=== PATIENT | female | born 1980 | race Caucasian/White ===

== ENCOUNTER → 2020-10-14 14:41 | Outpatient (BNVA) | payer OTHER, SELFPAY | PROVIDERS: PCP Family Medicine; Visit Provider Podiatrist Foot & Ankle Surgery | DX: M79.671 Pain in right foot (principal) | CPT/HCPCS: 73630 ==

== ENCOUNTER 2020-10-29 15:38 | Outpatient (CLI) | payer OTHER, SELFPAY ==
--- NOTE | 2020-10-29 15:44 | MR_ITS ---
WS: [id number] MRI RIGHT FOOT without CONTRAST. COMPARISON: Radiograph 10/14/2020 Multiplanar, multisequence imaging is performed without contrast. There is a lobulated soft tissue mass of predominantly cystic but mildly heterogeneous signal centere d lateral to the anterior talar process. There is mild extension of this cystic mass towards the sinu s Tarsi. Mass measures 2.1 x 2.0 cm. Mass is in close contact with the inferior extensor retinaculum band. The cervical ligament appears intact. There is no marrow edema within the talus or calcaneus. T here is some very mild increased signal in the sinus Tarsi on the STIR sequence which probably indica cheri mild fibrosis and scarring. There is increased T2 signal in the proximal cuboid measuring 8.8 mm in diameter. There is mild narro wing of the calcaneocuboid articulation and a small amount of fluid in the joint space. Normal alignm ent at the tarsometatarsal articulation. Achilles tendon is normal. Flexion and extensor tendons are intact. Peroneal brevis and longus tendons are normal. MR/MR foot RT wo con* [id number] IMPRESSION: 1. Slightly lobulated with mildly heterogeneous cystic lesion lateral to the t alus extending into the sinus Tarsi. This cystic mass measures 2.1 x 2.0 cm and is very likely a ganglion. Closely associated with the inferior extensor retin aculum and. 2. Cervical ligament in the sinus Tarsi is intact but there is mild scar tissu e in the sinus Tarsi. 3. Mild narrowing and degenerative changes at the calcaneocuboid articulation.
== END 2020-10-29 15:39 | disposition home or self-care (01) ==
LOC: RADSHAW 15:40
PROVIDERS: PCP Family Medicine; Visit Provider Podiatrist Foot & Ankle Surgery
DX: M25.571 Pain in right ankle and joints of right foot (principal)
CPT/HCPCS: 73718

== ENCOUNTER → 2021-07-26 15:24 | Outpatient (BNVA) | payer OTHER, SELFPAY | PROVIDERS: PCP Family Medicine; Visit Provider Podiatrist Foot & Ankle Surgery | DX: Z01.812 Encounter for preprocedural laboratory examination (principal); Z20.822 Contact with and (suspected) exposure to COVID-19; M67.471 Ganglion, right ankle and foot | CPT/HCPCS: 87635 ==

== ENCOUNTER 2021-07-30 05:52 | Day surgery (SDC) | payer OTHER, SELFPAY ==
[2021-07-29 15:48] VITALS: BMI 26.5
[2021-07-30] VITALS (9 sets, daily range): BP systolic 129–163; BP diastolic 76–102; PULSE 69–108; RESP 16–23; TEMP 36.3–36.8; O2SAT 92–99
--- NOTE | 2021-07-30 | SCC_ITS ---
Procedure Done: Soft tissue mass removal with synovectomy right sinus tarsi and excision of bone cyst right foot. 50 seconds of fluoroscopic guidance, for a cumulative dose of 0.850 mGy, was provided to Dr. Toussaint by the radiology department. C-arm images of the right ankle were saved for the patient's permanent record. [facility]
--- NOTE | 2021-07-30 06:33 | P.ANESASSM_ITS ---
Pre-Anesthetic Assessment Pre-Anesthetic Assessment: Height/Weight: Height 1.78 m Weight 83.915 kg Temp Pulse Resp BP Pulse Ox 98.2 F 92 17 163/102 98 07/30/21 06:16 07/30/21 06:16 07/30/21 06:16 07/30/21 06:16 07/30/21 06:16 Preop Diagnosis: Soft tissue mass and bone lesion right foot Proposed Procedure: Operation Date: 07/30/21 07:00 Proposed Procedures p Synovectomy rigt sinus tarsi 46776 M67.471(Right) - Joshua Toussaint DPM s Excision Bone Cyst Right Foot 39582 M67.471(Right) - Joshua Toussaint DPM Familial anesthetic complications: None Was Beta Graciela taken within 24 hours: N/A Was Clonidine taken within 24 hours: N/A Last intake: Intake Last Liquid Date 07/29/21 Last Liquid Time 23:59 Last Solid Date 07/29/21 Last Solid Time 22:00 Social: Social History: No alcohol and No tobacco Exam: Pre-Anes Outpt Exam: alert, oriented x 3, clear to auscultation bilaterally and regular rate & rhythm Airway: Cervical ROM: WNL MP: 2 Dentition: Full Anesthetic Plan: ASA status: 1 Anesthesia: General and Regional (specify below) Risk of > 500 ml blood loss (7ml/kg in children): No PFSH Anesthesia PFSH: Medical History Bone spur of right foot Deficient knowledge of leg surgery Surgical History H/O foot surgery Social History Quit status (tobacco): has quit using tobacco Second hand smoke exposure: No Smoking risk assessment/counseling performed?: Yes Alcohol intake: current Alcohol intake frequency: few times a week Alcohol type: wine Desire information about alcohol rehabilitation?: No Counseling given: Yes Desire information about substance/drug rehabilitation?: No Counseling given: Yes Adopted: No Caregiver/support person: No Lives independently: Yes Household members: spouse and children Housing: House Marital status: Number of children: 3 Highest education level completed: Bachelor's Degree service: No Current occupational status: unemployed Pets and animals: Yes History of recent travel: No Leisure activites: art and reading Sexually active: Yes Current gender identity: Female Paulina/Scientologist: Zoroastrianism Special paulina needs: No Agree to transfusion: Yes Financial difficulty paying for basics: Not Very Hard Data Anesthesia Cardiac Studies: No Data to Display
--- NOTE | 2021-07-30 06:52 | ANES.PROC ---
Anesthesia Procedures Procedure/Date: 07/30/21 Nerve Block ^: Nerve Block 1: Main Anesthesia: general anesthesia Time Out Performed: Yes Consent: requested by attending/covering physician, from patient, from other, risks and benefits reviewed and patient agrees to proceed Nerve block location: popliteal (R) Anesthesia monitors applied: pulse oximetry, EKG, BP cuff and oxygen Nerve block position: supine Anesthetic Used: ropivicaine 0.5% and with decadron (4) Amount of anesthesia used (mL): 30 Ultrasound used to: recognize landmarks Nerve Stimulator Used?: No Interscalene/Femoral BLK: 4 stimuplex 21 g needle used for position and inplane approach, visualize local anesthetic spread and no vascular puncture identified Injection: neg aspiration of heme Patient Tolerated Procedure: well and no complications Complications: none
--- NOTE | 2021-07-30 06:56 | W.PM.OPSUD ---
Surgery/Procedure H&P Update DATE OF PROCEDURE: July 30, 2021 DATE H&P PERFORMED: 07/26/21 H&P UPDATE INFORMATION: I have reviewed H&P completed within last 30 days, I have examined patient prior to procedure, No changes to prior documentation and H&P is in [facility] [place] on date indicated PREOP DIAGNOSIS: Soft tissue mass and bone lesion right foot PLANNED PROCEDURE: Operation Date: 07/30/21 07:00 Proposed Procedures p Synovectomy rigt sinus tarsi 88220 M67.471(Right) - Joshua Toussaint DPM s Excision Bone Cyst Right Foot 39988 M67.471(Right) - Joshua Toussaint DPM
[2021-07-30] MEDS: sodium chloride 0.9% 1,000 ML 30 ML IV (07:01)
[2021-07-30 07:03] LABS: OR HCG Qualitative Urine Negative (Negative)
[2021-07-30] MEDS: triamcinolone 40 mg/mL SDV IM (07:51)
--- NOTE | 2021-07-30 08:21 | XR_ITS ---
WS: [id number] Right foot, 3 views, 07/30/2021 Clinical Data: post op Comparison: Right foot, 10/14/2020. Findings: No fractures or dislocations are seen. No bone destruction or erosion is noted. The joint spaces and soft tissues are normal. By history a soft tissue mass has been removed. XR/XR foot RT min 3V* [id number] Impression: Negative right foot.
--- NOTE | 2021-07-30 08:30 | P.OP_ITS ---
Operative Report Date of procedure: July 30, 2021 Pre-op Diagnosis: Soft tissue mass and bone lesion right foot Post-op diagnosis: same Procedure Done: Soft tissue mass removal with synovectomy right sinus tarsi and excision of bone cyst right foot. CPT codes 71228 and 68645 Implants: 205 crural, 4-0 Vicryl, 4-0 nylon, Ortho biologic from [employer] interosseous bone plasty to the cuboid 1 cc, 1:1:1 mixture 0.5% Marcaine plain 1 cc, dexamethasone 4 mg 1 cc and Kenalog 41 cc total of 3 cc in the sinus tarsi. Pathology: Soft tissue mass right sinus tarsi sent to pathology lipoma appearance Surgeon: Joshua Toussaint D.P.M. Radiology Receptionist: Robbie Anesthesia: General Estimated blood loss: Less than 5 mL Tourniquet time: See Intra-Op documentation IV fluids: None Urine output: 0 Complications: None Findings: Soft tissue mass evacuated with synovectomy at the right sinus tarsi appearance of lipoma. Condition: stable Disposition: PACU Brief History: Persistent pain to the right foot after failing conservative measures consisting of anti-inflammatories both oral and local, orthotics supportive shoes and at home physical therapy. Recommended soft tissue mass excision with excision of bone cyst right foot. Risks include pain, bleeding, numbness, infection, failure to alleviate pain, permanent swelling, recurrence of soft tissue mass and need for further surgical intervention. Also damage to adjacent soft tissue structures, DVT, PE, heart attack, stroke and . Informed consent signed. Patient n.p.o. Covid screening negative no guarantees written, expressed or implied. Procedure: Under mild sedation the patient was brought to the operating room and placed on the operating table in supine position. A timeout was performed. Anesthesia was administered by the anesthesia service. Well-padded pneumatic tourniquet applied to the right ankle. Right lower extremity was scrubbed, prepped and draped utilizing normal aseptic technique. Bone marrow aspirate kit utilized to harvest 40 cc of bone marrow from the calcaneus lateral approach percutaneously percutaneous site was then flushed with saline and closed with a single 4-0 nylon stitch. Foot was then wrapped with Esmarch and tourniquet inflated to 250 mmHg well-padded ankle tourniquet right ankle. Attention was directed to the right sinus tarsi where a curvilinear incision was made through skin with dissection carried down carefully through subcutaneous tissue to the layer of soft tissue mass utilizing a combination of blunt and sharp technique. Care was taken to retract and preserve neurovascular and tendinous structures. All bleeders were ligated and cauterized as necessary. Soft tissue mass was sharply excised and passed from the operative field had adipose lipoma appearance with lobulated adipose tissue this was well encapsulated was able to excise the entire mass measuring 2.5 cm x 2.5 cm this was sent to pathology for review. Synovectomy at the sinus tarsi was performed followed by infiltration of 1:1:1 total of 3 cc. Incision was then flushed with saline solution and closed in layered fashion with retinaculum deep fascia closed with mixture 0.5% Marcaine plain, dexamethasone and Kenalog into the sinus tarsi. Incision was flushed with saline solution and closed with 2-0 Vicryl with deep tissue, subcutaneous tissue with 4-0 Vicryl and skin with 4-0 nylon. Utilizing fluoroscopy and triangulation in all 3 views a cannula was driven percutaneously over the dorsal surface of the cuboid perpendicular to the cortex dorsally not violating the calcaneocuboid joint this was advanced into the cuboid followed by infiltration of approximately 1 cc of Ortho biologic provided by [employer] performed a bone plasty for after curettage was able to visualize this under fluoroscopy. Bone void was filled with flowable biologic and incision flushed with saline and closed with 4-0 nylon. Incision sites were dressed with Adaptic, sterile 4 x 4, Kerlix, Nolberto wrap and a cam boot was applied to the right lower extremity. Tourniquet was deflated and a prompt hyperemic response was noted to the distal digits of the right foot. Patient tolerated the procedure and anesthesia well and was transferred to the PACU with vital signs stable vascular status intact. Following a period of postop monitoring she will be discharged home may be weightbearing as tolerated in the cam boot. Will follow up in podiatry clinic next week [facility] appointments already scheduled.
--- NOTE | 2021-07-30 17:21 | ANE.PACU2 ---
Inpatient post-anesthesia follow up: Airway intact: Yes Vital signs: Temperature 97.7 F Pulse Rate 69 Respiratory Rate 17 Blood Pressure 132/79 Pulse Oximetry 96 Oxygen Delivery Me thod Room Air Oxygen Flow Rate 6 Fraction of Inspir ed Oxygen Hydration adequate: Yes Nausea and vomiting: No Pain level: 2 Mental status: Baseline
== END 2021-07-30 09:43 | disposition home or self-care (01) ==
PROVIDERS: PCP Family Medicine; Visit Provider Podiatrist Foot & Ankle Surgery
PROC: (CPT 28039; principal; 2021-07-30 07:00)
PROC: (CPT 28140; 2021-07-30 07:00)
DX: D17.79 Benign lipomatous neoplasm of other sites (principal); M85.671 Other cyst of bone, right ankle and foot; M19.079 Primary osteoarthritis, unspecified ankle and foot; Z87.891 Personal history of nicotine dependence
CPT/HCPCS: 28039; 28104; 64450; 73630; 76000; 76942; 84703; 88304; C1762; J0690; J1100; J2704; J2795; J3010; J3301; J3490; J7030

== ENCOUNTER 2021-08-02 16:46 | Emergency (ER) | payer OTHER, SELFPAY ==
[2021-08-02 17:16] VITALS: BP 174/120; PULSE 97; RESP 19; TEMP 36.8; O2SAT 96; BMI 26.4
[2021-08-02 20:21] VITALS: PULSE 88
--- NOTE | 2021-08-02 21:25 | W.ED.EXTPRO ---
HPI - Extremity Problem General: Chief complaint: Extremity Problem,Nontraumatic Stated complaint: R. LEG PAIN POST SURGERY Time Seen by Provider: 08/02/21 21:25 History of Present Illness: HPI Narrative: 41-year-old female comes in today with some complaints of right calf pain. Patient states that she had surgery on her foot last Monday for a ganglion cyst and a bone cyst to be removed. Patient had a surgery done by Dr. Toussaint. Patient having some calf pain and she was concerned so she contacted his office today. Dr. Toussaint recommended that she come to the ER to be evaluated to rule out a DVT. On exam patient appears well. Patient appears in mild pain. No obvious swelling is noted to the lower extremity. Review of Systems General: Reports: 10 or more systems reviewed and unremarkable except in HPI and below Musc: Reports: other (Right lower leg pain) PFS ED PFSH: Medical History Bone spur of right foot Deficient knowledge of leg surgery Surgical History H/O foot surgery Social History Quit status (tobacco): has quit using tobacco Second hand smoke exposure: No Smoking risk assessment/counseling performed?: Yes Alcohol intake: current Alcohol intake frequency: few times a week Alcohol type: wine Desire information about alcohol rehabilitation?: No Counseling given: Yes Desire information about substance/drug rehabilitation?: No Counseling given: Yes Adopted: No Caregiver/support person: No Lives independently: Yes Household members: spouse and children Housing: House Marital status: Number of children: 3 Highest education level completed: Bachelor's Degree service: No Current occupational status: unemployed Pets and animals: Yes History of recent travel: No Leisure activites: art and reading Sexually active: Yes Current gender identity: Female Paulina/Restorationist: Moravian Special paulina needs: No Agree to transfusion: Yes Financial difficulty paying for basics: Not Very Hard Physical Exam Const: COMMON NORMALS: no acute distress and patient oriented x3 GENERAL APPEARANCE: cooperative HENMT: COMMON NORMALS: normocephalic and Normal external nose present HEAD & SCALP: normal to inspection and normocephalic NOSE: Normal external nose present MOUTH: Normal oral and palatal mucosa present Eye: GENERAL EYE: appearance normal, both eyes and all related structures Neck/C-Spine: COMMON NORMALS: full ROM Lymph: LYMPHATIC: no lymphadenopathy noted Chest: COMMONS NORMALS: normal inspection of the chest Resp: COMMON NORMALS: normal respiratory effort EFFORT & INSPECTION: Yes able to speak in complete sentences Cardio: COMMON NORMALS: regular rate and regular rhythm RATE: regular rate RHYTHM: regular rhythm GI: COMMON NORMALS: non-tender Extremity: NARRATIVE EXTREMITY EXAM: Soft palpable calf with no significant swelling. Pulses are intact. Dressing was removed and site has some mild ecchymosis but well approximated wound without any significant redness noted. Neuro: COMMON NORMALS: patient oriented x3 and moves all extremities Psych: COMMON NORMALS: mental status grossly normal and cooperative Skin: COMMON NORMALS: no rashes or lesions noted GENERAL SKIN EXAM: no rashes or lesions noted Course Vital Signs: Vital signs: Vital Signs Temperature 98.2 F 08/02/21 17:16 Pulse Rate 97 08/02/21 17:16 Respiratory Rate 19 H 08/02/21 17:16 Blood Pressure 174/120 08/02/21 17:16 Pulse Oximetry 96 08/02/21 17:16 MDM - Extremity (Nontraumatic) MDM Narrative: Medical decision making narrative: Patient comes in today with some complaints of right lower leg calf pain. Patient had recent surgery on her foot on the right side for ganglion cyst and a bone cyst removal. Exam indicates a well-healing wound without any significant sign of redness or swelling. Calf appears well. No tenderness is noted on palpation of the calf. Differential diagnosis includes but not limited to DVT, cellulitis, wound infection. X-ray of the foot was unremarkable. Ultrasound of the extremity was negative for DVT. CBC and CMP did note some elevation in hemoglobin hematocrit with some decrease in the sodium and chloride. Suspect patient probably has some mild dehydration due to poor oral intake over the last few days since her surgery. Recommended increasing fluids and monitoring for fever. No signs of infection was noted at this time. Instructed patient to monitor for fever greater than 100.4, increased swelling and redness to the lower extremity, or new concerns. Patient if any of these symptoms should return to the ER or follow-up with surgeon. Patient reported understanding and agreed to plan. Lab Data: Labs: Lab Results 08/02/21 08/02/21 22:05 22:05 WBC 10.8 10^3/uL H 10 ^3/uL (4.0-10.0) RBC 4.52 10^6/uL 10^6 /uL (4.1-5.3) Hgb 15.6 g/dL H g/dL (11.5-15.3) Hct 48.8 % H % (37.0-47.0) MCV 108.0 fl H fl (81-99) MCH 34.5 pg H pg (28.0-34.0) MCHC 32.0 g/dL g/dL (30.0-36.0) RDW 11.8 % L % (12.1-15.1) Plt Count 221 10^3/cmm 10^3 /cmm (130-400) MPV 9.5 fL fL (7.4-10.4) Neut % (Auto) 53.9 % % Lymph % (Auto) 34.4 % % Blackford % (Auto) 8.9 % % Eos % (Auto) 1.8 % % Baso % (Auto) 0.7 % % Neut # (Auto) 5.81 10^3/uL 10^3 /uL (1.8-7.7) Lymph # (Auto) 3.7 10^3/uL 10^3/ uL (0.8-4.8) Blackford # (Auto) 1.0 10^3/uL H 10^ 3/uL (0.2-0.9) Eos # (Auto) 0.2 10^3/uL 10^3/ uL (0.0-0.8) Baso # (Auto) 0.1 10^3/uL 10^3/ uL (0.0-0.1) Nucleated RBC % (a uto) 0 % % Nucleated RBCs # 0.0 /100WBC /100W BC Sodium 133 mmol/L L mmol /L (136-145) Potassium 4.6 mmol/L mmol/L (3.5-5.1) Chloride 96 mmol/L L mmol/ L (98-107) Carbon Dioxide 18 mmol/L L mmol/ L (22-29) Anion Gap 23.6 H (5-19) BUN 8 mg/dL mg/dL (6-20) Creatinine 0.5 mg/dL mg/dL (0.5-0.9) GFR Calculation 134.7 mL/min H mL /min (90-130) Glucose 76 mg/dL mg/dL (65-115) Calculated Osmolal ity 273 mOsm/kg L mOs m/kg (285-295) Calcium 10.1 mg/dL mg/dL (8.5-10.5) Total Bilirubin 0.9 mg/dL mg/dL (0.15-1.2) AST 93 U/L H U/L (0-32) ALT 154 U/L H U/L (0-33) Alkaline Phosphata se 84 IU/L IU/L (35-105) Total Protein 8.3 g/dL g/dL (6.6-8.7) Albumin 4.6 g/dL g/dL (3.5-5.2) Globulin 3.7 g/dL g/dL (1.3-4.6) Discharge Plan Discharge Patient Disposition: Home Clinical Impression: Pain of right calf, Dehydration Condition: Stable Prescriptions: No Action Percocet 10-325 mg tablet 1 tab PO Q6H 7 Days Qty: 28 RF: 0 Zofran 4 mg tablet 4 mg PO Q8H PRN (Reason: nausea and vomiting) 7 Days Qty: 21 RF: 0 Discharge Orders: Discharge ED (Routine); Ordered 08/02/21 Ordered By: Ben Isaacs Referrals: Angie Wheeler DO [Primary Care Provider] - Discharge Diet: Usual diet Discharge Activity: Increase activity as tolerated Patient Instructions: Dehydration (ED), Musculoskeletal Pain (ED), Opioid Safety Activity Restrictions/Additional Instructions: Activity as tolerated. Avoid overdoing activity. Use acetaminophen or ibuprofen as directed for pain control. Use oxycodone for breakthrough pain control or as directed. Monitor for fever or increasing redness and swelling to the extremity. Follow-up with surgeon or return to the ER as needed. Coding Level of Care Code ED Sack Maker for Diana Montes
--- NOTE | 2021-08-02 21:33 | USR_ITS ---
PROCEDURE INFORMATION: Exam: US Duplex Right Lower Extremity Veins, Limited Exam date and time: 08/02/2021 9:33 PM Age: 41 years old Clinical indication: Pain; Leg, lower; Right; Prior surgery; Surgery date: 3-7 days post-operative; Surgery type: Ankle; Additional info: R/O dvt, recent surgery TECHNIQUE: Imaging protocol: Real-time Duplex ultrasound of the Right Lower Extremity with 2-D gordon scale, color Doppler flow and spectral waveform analysis with image documentation. Limited exam was focused on the right lower extremity veins. COMPARISON: None FINDINGS: Right deep veins: Unremarkable. The common femoral, femoral, proximal profunda femoral and popliteal veins are patent without thrombus. Normal Doppler waveforms. Normal compressibility and/or augmentation response. Right superficial veins: Unremarkable. Saphenofemoral junction is patent without thrombus. Soft tissues: Unremarkable. US/[place] [id number] IMPRESSION: No evidence of right leg deep vein thrombosis. Radiation Dose CTDIVOL = (mGy): DLP = (mGy-cm)
--- NOTE | 2021-08-02 21:37 | XRR_ITS ---
PROCEDURE INFORMATION: Exam: XR Right Foot Exam date and time: 08/02/2021 9:37 PM Age: 41 years old Clinical indication: Pain; Right; Prior surgery; Surgery date: 3-7 days post-operative; Surgery type: RT. Foot; Additional info: Pain post surgical TECHNIQUE: Imaging protocol: XR Right foot. Views: 3 or more views. COMPARISON: CR XR foot RT min 3V* [id number] 07/30/2021 8:19 AM FINDINGS: Bones/joints: Normal. Incidental heel spur Soft tissues: Normal. XR/XR foot RT min 3V* [id number] IMPRESSION: Unremarkable Radiation Dose CTDIVOL = (mGy): DLP = (mGy-cm)
[2021-08-02 22:20] LABS: Basophils # 0.1 10^3/uL (0.0-0.1); Basophils % 0.7 %; Eosinophils # 0.2 10^3/uL (0.0-0.8); Eosinophils % 1.8 %; Hematocrit 48.8 % (37.0-47.0); Hemoglobin 15.6 g/dL (11.5-15.3); Lymphocytes # 3.7 10^3/uL (0.8-4.8); Lymphocytes % 34.4 %; Mean Corpuscular Hemoglobin 34.5 pg (28.0-34.0); Mean Platelet Volume 9.5 fL (7.4-10.4); Monocytes % 8.9 %; Neutrophils # 5.81 10^3/uL (1.8-7.7); Neutrophils % 53.9 %; Nucleated Red Blood Cells % 0 %; Platelet Count 221 10^3/cmm (130-400); Red Blood Count 4.52 10^6/uL (4.1-5.3); Red Cell Distribution Width 11.8 % (12.1-15.1); White Blood Count 10.8 10^3/uL (4.0-10.0)
[2021-08-02 22:48] LABS: Alanine Aminotransferase 154 U/L (0-33); Albumin Level 4.6 g/dL (3.5-5.2); Alkaline Phosphatase 84 IU/L (35-105); Blood Urea Nitrogen 8 mg/dL (6-20); Calcium 10.1 mg/dL (8.5-10.5); Carbon Dioxide 18 mmol/L (22-29); Chloride 96 mmol/L (98-107); Globulin 3.7 g/dL (1.3-4.6); Glomerular Filtration Rate 134.7 mL/min (90-130); Glucose 76 mg/dL (65-115); Osmolality Calculated 273 mOsm/kg (285-295); Sodium 133 mmol/L (136-145); Total Bilirubin 0.9 mg/dL (0.15-1.2); Total Protein 8.3 g/dL (6.6-8.7)
[2021-08-02 22:49] LABS: Anion Gap 23.6 (5-19); Aspartate Amino Transferase 93 U/L (0-32); Potassium 4.6 mmol/L (3.5-5.1)
[2021-08-02 23:09] VITALS: BP 146/92; PULSE 74; RESP 18; O2SAT 96
== END 2021-08-02 23:10 | disposition home or self-care (01) ==
PROVIDERS: Emergency Provider Nurse Practitioner Family; PCP Family Medicine
DX: M79.661 Pain in right lower leg (principal); E86.0 Dehydration; Z87.891 Personal history of nicotine dependence; Z79.891 Long term (current) use of opiate analgesic
CPT/HCPCS: 73630; 80053; 85025; 93971; 99282

== ENCOUNTER → 2021-09-09 14:04 | Outpatient (BNVA) | payer OTHER, SELFPAY | PROVIDERS: PCP Family Medicine; Visit Provider Podiatrist Foot & Ankle Surgery | DX: Z98.890 Other specified postprocedural states (principal) | CPT/HCPCS: 73630 ==

== ENCOUNTER → 2022-09-07 11:03 | Outpatient (BNVA) | payer OTHER, SELFPAY | PROVIDERS: PCP Family Medicine; Visit Provider Podiatrist Foot & Ankle Surgery | DX: M67.471 Ganglion, right ankle and foot (principal); M79.89 Other specified soft tissue disorders; M72.2 Plantar fascial fibromatosis | CPT/HCPCS: 73630 ==

== ENCOUNTER 2022-11-25 13:03 | Outpatient (CLI) | payer OTHER, SELFPAY ==
--- NOTE | 2022-11-25 13:00 | MR_ITS ---
WS: [id number] EXAMINATION: MR ankle RT wo/w con [id number] ORDER DATE: 11/25/2022 1:14 PM COMPARISON: 10/29/20 HISTORY: soft tissue mass at the right sinus tarsi TECHNIQUE: Axial proton density fat sat, axial T1, sagittal proton density, sagittal STIR, coronal T2 fat sat, and coronal T1 sequences performed. After contrast, axial T1 fat sat, coronal T1 fat sat, and sagittal T1 fat sat were performed. FINDINGS: Previously described ganglion cyst reportedly resected. New or recurrent peripherally enhancing ganglion cyst along the sinus tarsi measuring 2.2 x 1.8 cm. A dditional new lobulated ganglion cyst along the anterior talus measuring 2.2 x 0.9 CM. Associated per ipheral enhancement. There appears to be communication between the 2 cysts. Small retrocalcaneal effusion. Degenerative bone marrow edema in the calcaneal cuboid articulation. I ncreased signal in the sinus tarsi is unchanged in appearance. Distal Achilles is normal. Normal maliha vlad tendon sheath. Visualized flexor and extensor tendons appear intact. Achilles enthesophyte. Slight plantar calcaneal spurring. Postoperative changes with susceptibility artifact along the calcaneal plantar aponeurosis MR/MR ankle RT wo/w con [id number] IMPRESSION: 1. Ganglion cyst at the sinus tarsi is recurrent or new measuring 2.2 x 1.8 cm . 2. Additional peripheral enhancing ganglion cyst along the talar neck measurin g 2.2 x 0.9 CM. This appears to communicate with the above-described cyst 3. No other significant interval changes.
[2022-11-25] MEDS: gadobenate dimeglumine 20 mL vial IV (15:01)
== END 2022-11-25 13:04 | disposition home or self-care (01) ==
LOC: RAD 13:04
PROVIDERS: PCP Family Medicine; Visit Provider Podiatrist Foot & Ankle Surgery
DX: M67.471 Ganglion, right ankle and foot (principal)
CPT/HCPCS: 73723; A9577

== ENCOUNTER → 2024-08-19 15:46 | Outpatient (BNVA) | payer OTHER, SELFPAY | PROVIDERS: PCP Family Medicine; Visit Provider Nurse Practitioner Women's Health | DX: Z12.39 Encounter for other screening for malignant neoplasm of breast (principal); Z12.4 Encounter for screening for malignant neoplasm of cervix | CPT/HCPCS: 87624 ==

== ENCOUNTER 2024-09-11 14:48 | Outpatient (CLI) | payer OTHER, SELFPAY ==
--- NOTE | 2024-09-11 15:00 | MM_ITS ---
WS: [id number] Bilateral screening 3D tomosynthesis digital mammogram, 09/11/2024 3:00 PM Clinical Data: Z12.39 - Encounter for other screening for malignant neop... Comparison: None. Findings: No spiculated masses or clustered calcifications are seen. There are no secondary signs of carcinoma . MM/MM scr BI tomosynthesis [id number] Impression: Negative bilateral mammogram with no prior exam for review. Recommend annual screening mammograms. BIRADS: 1 - Negative FOLLOW UP: 1 Year Follow-up DENSITY: The breasts are heterogeneously dense, which may obscure small masses. The CAD glass checker was used
== END 2024-09-11 14:49 | disposition home or self-care (01) ==
PROVIDERS: PCP Family Medicine; Visit Provider Nurse Practitioner Women's Health
DX: Z12.31 Encounter for screening mammogram for malignant neoplasm of breast (principal); R92.333 Mammographic heterogeneous density, bilateral breasts
CPT/HCPCS: 77063; 77067